=== PATIENT | female | born 1980 ===

== ENCOUNTER 2020-07-11 10:42 | Inpatient (IN) | payer OTHER ==
[2020-07-11] MEDS ORDERED: LIDOCAINE (2%) 20 MG/1 ML VIAL 20 ML MDV INFILTRATI ONE (11:18)
[2020-07-11] MEDS ORDERED: ePHEDrine SULFATE 50 MG/1 ML INJ IV PRN (11:18)
[2020-07-11] MEDS ORDERED: TERBUTALINE 1 MG/1 ML INJ SUB-Q PRN (11:18)
[2020-07-11] MEDS ORDERED: fentaNYL 100 MCG/2 ML INJ IV PRN (11:18)
[2020-07-11] MEDS ORDERED: MINERAL OIL 30 ML ORAL LIQD PO PRN (11:18)
[2020-07-11] MEDS ORDERED: AMPICILLIN/NS 2 GM/100 ML 2 GM/100 ML BAG IV ONE (11:18)
--- NOTE | 2020-07-11 11:24 | History and Physical Report ---
History of Present Illness Date of examination: 07/11/20 Date of admission: 07/11/20 10:42 Chief complaint: Leaking of fluid from vagina History of present illness: 39 year old female presents to L&D with complaint of leaking of fluid from vagina and contractions. Patient received care at [facility]. records are available. LMP 11/01/2019. EDC 08/07/2020. significant for the following: AMA, obesity, gestational diabetes, LG A. labs are as follows: A+, antibody screen negative, rubella immune, hepatitis B surface antigen negative, HIV negative, RPR nonreactive, gonorrhea negative, chlamydia negative, GBS unknown, 1 hour sugar test 167 (3 hour OGTT 71, 192, 164, 126), AFP negative, SMA negative, cystic fibrosis negative, fragile X negative. Past History Past Medical History: other (obesity) Past Surgical History: cholecystectomy [employer] History: denies: abnormal PAP smear, chlamydia, gonorrhea, hepatitis B, hepatitis C, herpes, HIV, syphilis, trichomonas Family/Genetic History: cancer (sister had uterine cancer) Social history: lives with family, full code. denies: smoking, alcohol abuse, prescription drug abuse, IV drug use - Obstetrical History Expected Date of Delivery: 08/07/20 Actual Gestation: 36 Week(s) 1 Day(s) : 3 Para: 2 Hx # Term Pregnancies: 2 Number of Pregnancies: 0 Spontaneous Abortions: 0 Induced : 0 Number of Living Children: 2 Medications and Allergies Allergies Allergy/AdvReac Type Severity Reaction Status Date / Time No Known Allergies Allergy Unverified 07/11/20 11:32 Home Medications Medication Instructions Recorded Confirmed Last Taken Type No Known Home Medications [No 07/11/20 07/11/20 Unknown History Reported Home Medications] Active Meds: Active Medications Ephedrine Sulfate (Ephedrine Sulfate 50 Mg/1 Ml Inj) 10 mg IV Q2M PRN PRN Reason: Hypotension Fentanyl (Fentanyl 100 Mcg/2 Ml Inj) 100 mcg IV Q2H PRN PRN Reason: Pain,Severe (7-10) LABOR PAIN Oxytocin/Sodium Chloride (Pitocin/Ns 30 Unit/500ml) 30 units in 500 mls @ 2 mls/hr IV TITR HOME; Protocol Lactated Ringer's (Lactated Ringers) 1,000 mls @ 125 mls/hr IV DIRECT HOME Oxytocin/Sodium Chloride (Pitocin/Ns 30 Unit/500ml) 30 units in 500 mls @ 40 mls/hr IV TITR HOME; Protocol Ampicillin Sodium (Ampicillin/Ns 2 Gm/100 Ml) 2 gm in 100 mls @ 100 mls/hr IV ONCE ONE; Protocol Stop: 07/11/20 12:17 Ampicillin Sodium (Ampicillin/Ns 1 Gm/50 Ml) 1 gm in 50 mls @ 100 mls/hr IV Q4H HOME; Protocol Lidocaine (Lidocaine (2%) 20 Mg/1 Ml Vial 20 Ml Mdv) 20 ml INFILTRATI ONCE ONE Stop: 07/11/20 11:19 Mineral Oil (Mineral Oil 30 Ml Oral Liqd) 30 ml PO QHS PRN PRN Reason: Constipation Terbutaline Sulfate (Terbutaline 1 Mg/1 Ml Inj) 0.25 mg SUB-Q ONCE PRN PRN Reason: Hyperstimulation/Hypertonicity Review of Systems All systems: negative (leaking of clear fluid from vagina, uterine contractions) - Vital Signs Vital signs: Vital Signs Pulse BP 73 120/72 07/11/20 10:56 07/11/20 10:56 Temp Pulse Resp BP Pulse Ox 85 120/72 96 07/11/20 11:19 07/11/20 10:56 07/11/20 11:19 - Physical Exam Abdomen: Positive: normal appearance, soft. Negative: distention, tenderness, guarding, rigidity Genitourinary (Female): Positive: normal external genitalia, normal perenium. Negative: perineal/vulvar lesions Vagina: Positive: other (clear discharge) Uterus: Positive: enlarged. Negative: tender Anus/Rectum: Positive: normal perianal skin Extremities: Positive: normal - Obstetrical FHR: category 1 Uterine Contraction Monitor Mode: External Cervical Dilatation: 5 Cervical Effacement Percentage: 80 station: -4 Uterine Contraction Pattern: Regular Uterine Contraction Intensity: Moderate Results Result Diagrams: 07/11/20 11:25 All other labs normal. Assessment and Plan A: at 36 weeks, 1 day gestation. Spontaneous rupture of membranes. GBS unknown. Early labor. GDM. Obesity. AMA. P: Admit. Continuous EFM. GBS prophylaxis. Blood sugars every 2 hours. Pitocin augmentation of labor.
[2020-07-11] MEDS ORDERED: LACTATED RINGERS 1,000 ML IV SCH (11:30)
[2020-07-11] MEDS ORDERED: dexAMETHasone 4 MG/ML VIAL IV SCH (12:00)
[2020-07-11] MEDS ORDERED: BETAMET ACET/BETAMET NA PH 6 MG/ML INJ 5 ML MDV IM SCH (12:00)
[2020-07-11] MEDS ORDERED: OXYTOCIN DRIP 30 UNITS/500 ML BAG IV SCH ×2 (12:00)
[2020-07-11 12:05] LABS: Hematocrit 37.4 % (30.3-42.9); Hemoglobin 12.8 gm/dl (10.1-14.3); Mean Corpuscular HGB Conc 34 % (30-34); Mean Corpuscular Volume 88 fl (79-97); Platelet Count 202 K/mm3 (140-440); Red Blood Count 4.26 M/mm3 (3.65-5.03)
[2020-07-11] MEDS ORDERED: dexAMETHasone 4 MG/ML VIAL IM SCH (14:00)
--- NOTE | 2020-07-11 14:36 | Ultrasound Report ---
ULTRASOUND OBSTETRIC INDICATION / CLINICAL INFORMATION: Estimated weight. Clinical Gestational Age (GA) in weeks, days: 36, 1 TECHNIQUE: Transabdominal. COMPARISON: None available. FINDINGS: Single intrauterine . Biparietal Diameter = 8.8 cm = 35, 2 weeks, days Head Circumference = 33.0 cm = 37, 4 weeks, days Abdominal Circumference = 33.3 cm = 37, 2 weeks, days Femur Length = 6.2 cm = 32, 2 weeks, days Average Ultrasound Age (AUA) = 35, 4 weeks, days Heart Rate: 149 beats per minute. Estimated Weight in grams (if calculated): 2781 Estimated Weight Growth Percentile (if calculated): 43% Position: cephalic. Cervix: Not visualized. Length in cm (if measured): Not measured Placenta: Not evaluated IMPRESSION: 1. Single, living intrauterine with estimated sonographic age of 35, 4 weeks, days. 2. Estimated weight is 2781 g with 43 percentile. Signer Name: Beena Goldstein MD Signed: 07/11/2020 2:32 PM Workstation Name: [id number]
[2020-07-11] MEDS ORDERED: AMPICILLIN/NS 1 GM/50 ML 1 GM/50 ML BAG IV SCH (16:00)
--- NOTE | 2020-07-11 18:53 | Event Note ---
Date: 07/11/20 SVE /-3.
[2020-07-11] MEDS ORDERED: miSOPROStol 200 MCG TAB ONE (19:27)
[2020-07-11] MEDS ORDERED: miSOPROStol 200 MCG TAB PR ONE (19:30)
[2020-07-11] MEDS ORDERED: LANOLIN/ZINC/DIMETHICONE (LANSINOH) 7 GM TP PRN (19:53)
[2020-07-11] MEDS ORDERED: WITCH HAZEL/ GLYCERIN PAD TP PRN (19:53)
[2020-07-11] MEDS ORDERED: HYDROcodone/ACETAMINOPHEN 5-325 MG TAB PO PRN (19:53)
[2020-07-11] MEDS ORDERED: MAGNESIUM HYDROXIDE (MOM) ORAL LIQD UDC PO PRN (19:53)
--- NOTE | 2020-07-11 20:01 | Procedure Note ---
OB Delivery Note - Delivery Date of Delivery: 07/11/20 Surgeon: MIGUELINA GOMEZ Estimated blood loss: other (300 cc) - Vaginal Delivery presentation: vertex Delivery position: OA Intrapartum events: none Delivery induction: none Delivery augmentation: pitocin Delivery monitor: external FHT, external uterine Route of delivery: Delivery placenta: spontaneous Delivery cord: 3 umbilical vessels Episiotomy: none Delivery laceration: 1st degree Delivery repair: vicryl Anesthesia: none Delivery comments: Spontaneous vaginal delivery at 19:20 of liveborn male weighing 6 lb. 13 oz. over first degree perineal laceration with apgars of 8/9. was atraumatic; nuchal cord times 1, manually reduced. Patient was placed skin to skin with mom immediately after delivery. Spontaneous cry and respirations. Baby was suctioned with bulb syringe and dried with warm towels. 3 vessel cord double clamped and cut. Spontaneous delivery of intact placenta and membranes. EBL 300 cc. Pitocin to IV fluids after delivery of placenta. Fundus firm and midline. Cytotec 800 mcg given rectally due to period of uterine atony. Small first degree perineal laceration repaired with 3-0 vicryl. No other lacerations noted. Vaginal sweep negative. Sponge count correct. Mother and baby stable.
[2020-07-11 21:21] LABS: Hematocrit 39.8 % (30.3-42.9); Hemoglobin 13.1 gm/dl (10.1-14.3); Mean Corpuscular HGB Conc 33 % (30-34); Mean Corpuscular Volume 89 fl (79-97); Platelet Count 220 K/mm3 (140-440); Red Blood Count 4.47 M/mm3 (3.65-5.03); Red Cell Distribution Width 14.8 % (13.2-15.2)
[2020-07-11 22:45] LABS: Band Neutrophils # (Manual) 0.2 K/mm3; Total Cells Counted 100
[2020-07-11 22:46] LABS: Large Platelets Rare
[2020-07-11 22:47] LABS: Platelet Estimate Consistent w Auto; RBC Morphology Normal
[2020-07-11] MEDS: FERROUS SULFATE 325 MG TAB PO SCH (23:45)
[2020-07-11] MEDS: IBUPROFEN 600 MG TAB PO SCH (23:45)
[2020-07-11] MEDS: DOCUSATE SODIUM 100 MG CAP PO SCH (23:46)
[2020-07-12] MEDS: IBUPROFEN 600 MG TAB PO SCH ×2 (05:44→18:15)
[2020-07-12] MEDS ORDERED: TETANUS,DIPH,PERTUSS(ACELL) VACCINE 0.5 ML SYRINGE IM ONE (06:00)
[2020-07-12 08:23] LABS: Hematocrit 34.6 % (30.3-42.9); Hemoglobin 11.5 gm/dl (10.1-14.3)
[2020-07-12] MEDS ORDERED: medroxyPROGESTERone ACETATE 150 MG/ML SYRINGE IM NR (11:47)
--- NOTE | 2020-07-12 11:49 | Progress Note ---
Assessment and Plan A: PP Day #1 Stable GDM A1 P: Follow Routine Orders Continue GDM Diet Depo provera 150mg IM prior to discharge D/C home today per patient request RTO in Six Weeks Subjective - Subjective Date of service: 07/12/20 Patient reports: appetite normal, voiding normally, pain well controlled, flatus, bowel movement, ambulating normally : doing well, bottle feeding (and ) Objective - Vital Signs Latest vital signs: Vital Signs Temp Pulse Resp BP BP Pulse Ox 07/12/20 09:00 98.0 F 70 18 124/56 97 07/12/20 04:30 97.7 F 61 20 115/59 97 07/12/20 00:28 98.2 F 76 18 109/50 93 07/11/20 21:20 99.0 F 80 20 123/64 96 07/11/20 20:28 90 95 07/11/20 20:23 76 127/66 96 07/11/20 20:18 75 96 07/11/20 20:13 77 96 07/11/20 20:08 81 131/73 96 07/11/20 20:03 77 95 07/11/20 19:58 83 97 07/11/20 19:53 85 139/78 96 07/11/20 19:48 75 97 07/11/20 19:43 86 97 07/11/20 19:40 90 155/74 07/11/20 19:39 98.2 F 15 07/11/20 19:38 63 95 07/11/20 12:49 78 96 07/11/20 12:44 76 96 07/11/20 12:39 78 96 07/11/20 12:34 83 95 07/11/20 12:29 73 95 07/11/20 12:24 78 97 07/11/20 12:19 86 96 07/11/20 12:14 74 96 07/11/20 12:09 74 98 07/11/20 12:04 75 95 07/11/20 11:59 86 96 07/11/20 11:54 80 97 07/11/20 11:49 74 96 Intake and Output 07/11/20 07/12/20 07/12/20 22:59 06:59 14:59 Intake Total 2.267 120 Output Total 550 Balance 2.267 -430 Intake: IV 2.267 PITOCin/NS 30 UNIT/500ML 2.267 30 units In 500 ml @ 2 mls/hr IV TITR HOME Rx#: [id number] Oral 120 Output: Urine 550 Void 550 Other: Total, Intake Amount 120 Total, Output Amount 350 # Voids Void 100 Estimated Blood Loss 300 - Exam Breasts: Present: normal Cardiovascular: Present: Regular rate Lungs: Present: Clear to auscultation, Normal air movement Abdomen: Present: normal appearance, soft, normal bowel sounds Uterus: Present: normal, firm, fundal height below umbilicus Extremities: Present: normal - Labs Labs: Abnormal lab results 07/11/20 07/11/20 Range/Units 16:08 20:51 WBC 12.2 H (4.5-11.0) K/mm3 Lymphocytes % (Manual) 6.0 L (13.4-35.0) % Seg Neutrophils # Man 11.1 H (1.8-7.7) K/mm3 Lymphocytes # (Manual) 0.7 L (1.2-5.4) K/mm3 POC Glucose 59 L (70-105) mg/dL
--- NOTE | 2020-07-12 11:52 | Discharge Summary ---
Providers - Providers Date of Admission: 07/11/20 10:42 Date of discharge: 07/12/20 Attending physician: ARELY CLEARY MD Primary care physician: ARELY CLEARY MD Hospitalization Reason for admission: rupture of membranes Delivery: Episiotomy: none Laceration: 1st degree Other procedures: none complications: none Discharge diagnosis: IUP at term delivered baby: male Condition at discharge: Good Disposition: DC-01 TO HOME OR SELFCARE Plan - Provider Discharge Summary Activity: routine, no sex for 6 weeks, no heavy lifting 4 weeks, no strenuous exercise Diet: routine Instructions: routine Additional instructions: [] Smoking cessation referral if applicable(refer to patient education folder for contact #) [] Refer to [facility] Booklet Call your doctor immediately for: * Fever > 100.5 * Heavy vaginal bleeding ( >1 pad per hour) * Severe persistent headache * Shortness of breath * Reddened, hot, painful area to leg or breast * Drainage or odor from incision. * Keep incision clean and dry at all times and follow doctor's instructions regarding bathing/showering - Follow up plan Follow up: ARELY CLEARY MD [Primary Care Provider] - 6 Weeks
[2020-07-12] MEDS: DOCUSATE SODIUM 100 MG CAP PO SCH (18:15)
[2020-07-12] MEDS: FERROUS SULFATE 325 MG TAB PO SCH (18:15)
[2020-07-12 20:58] VITALS: BP 117/64
== END 2020-07-12 22:50 | disposition home or self-care (01) | DRG 807 ==
LOC: LD 10:42 → OB 21:03
PROVIDERS: ADMIT Obstetrics & Gynecology; ATTEND Obstetrics & Gynecology
PROC: 10E0XZZ Delivery of Products of Conception, External Approach (ICD-10-PCS; principal; 2020-07-11)
PROC: 0HQ9XZZ Repair Perineum Skin, External Approach (ICD-10-PCS; 2020-07-11)
DX: O99.214 Obesity complicating childbirth (principal); Z37.0 Single live birth; O24.429 Gestational diabetes mellitus in childbirth, unspecified control; Z90.49 Acquired absence of other specified parts of digestive tract; Z3A.36 36 weeks gestation of pregnancy; Z80.49 Family history of malignant neoplasm of other genital organs; O70.0 First degree perineal laceration during delivery; Z20.822 Contact with and (suspected) exposure to COVID-19
CPT/HCPCS: 36415; 76815; 76816; 82962; 83036; 85007; 85014; 85018; 85025; 85027; 86592; 86850; 86900; 86901; 90471; 90715; G0378; J0290; J1100; J2590; J7120; U0003